=== PATIENT | female | born 2000 | race Caucasian/White ===

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

== ENCOUNTER 2019-02-26 07:58 | Emergency (ER) | payer OTHER ==
[~2019-02-26] VITALS: Ht 157.5 cm; Wt 56.2 kg
[2019-02-26] MEDS ORDERED: TUSSI PRES-B L480 ML PO (09:11)
[2019-02-26] MEDS ORDERED: ZITHROMAX500 MG PO (09:11)
== END 2019-02-26 09:21 | disposition home or self-care (01) ==
LOC: ER 07:58
DX: J31.2 Chronic pharyngitis (principal)

== ENCOUNTER 2019-04-06 14:10 | Emergency (ER) | payer OTHER ==
[~2019-04-06] VITALS: Ht 157.5 cm; Wt 56.7 kg
[~2019-04-06 14:10] MED LIST changes: +TUSSI PRES-B L480 ML PO; +ZITHROMAX500 MG PO
[2019-04-06] MEDS ORDERED: SPRINTEC 28 DA1 EACH PO (14:40)
== END 2019-04-06 15:56 | disposition home or self-care (01) ==
LOC: ER 14:10
DX: N39.0 Urinary tract infection, site not specified (principal)

== ENCOUNTER 2019-05-03 08:17 | Emergency (ER) | payer OTHER ==
[~2019-05-03] VITALS: Ht 157.5 cm; Wt 56.7 kg
[~2019-05-03 08:17] MED LIST changes: +SPRINTEC 28 DA1 EACH PO
[2019-05-03] MEDS ORDERED: TUSSI PRES-B L480 ML PO (11:13)
[2019-05-03] MEDS ORDERED: ZITHROMAX500 MG PO (11:13)
== END 2019-05-03 11:24 | disposition home or self-care (01) ==
LOC: ER 08:17
DX: B34.9 Viral infection, unspecified (principal)

== ENCOUNTER 2019-10-13 13:48 | Emergency (ER) | payer OTHER ==
[~2019-10-13] VITALS: Ht 157.5 cm; Wt 56.7 kg
== END 2019-10-13 18:42 | disposition home or self-care (01) ==
LOC: ER 13:48
DX: N39.0 Urinary tract infection, site not specified (principal); R10.31 Right lower quadrant pain

== ENCOUNTER 2019-10-21 14:07 | Outpatient (CLI) | payer OTHER | END 2019-10-21 14:20 | disposition home or self-care (01) | LOC: SONOGRAMA 14:07 | PROVIDERS: ATTEND Obstetrics & Gynecology | DX: N63.10 Unspecified lump in the right breast, unspecified quadrant (principal); N63.20 Unspecified lump in the left breast, unspecified quadrant; N64.4 Mastodynia ==

== ENCOUNTER 2019-12-30 10:32 | Outpatient (CLI) | payer OTHER | END 2019-12-30 10:58 | disposition home or self-care (01) | LOC: SONOGRAMA 10:32 | PROVIDERS: ATTEND Pathology Anatomic Pathology & Clinical Pathology | DX: N63.10 Unspecified lump in the right breast, unspecified quadrant (principal); N63.20 Unspecified lump in the left breast, unspecified quadrant; N64.4 Mastodynia ==

== ENCOUNTER 2020-02-19 12:14 | Emergency (ER) | payer OTHER ==
[~2020-02-19] VITALS: Ht 157.5 cm; Wt 56.7 kg
== END 2020-02-19 15:31 | disposition home or self-care (01) ==
LOC: EMR PED 12:14 → ER 12:17 → EMR PED 12:17
DX: B86 Scabies (principal)

== ENCOUNTER 2021-12-17 13:57 | Outpatient (CLI) | payer OTHER | END 2021-12-17 14:06 | disposition home or self-care (01) | LOC: SONOGRAMA 13:57 | PROVIDERS: ATTEND Obstetrics & Gynecology | DX: N63.0 Unspecified lump in unspecified breast (principal); N64.4 Mastodynia ==

== ENCOUNTER 2022-01-18 11:59 | Emergency (ER) | payer OTHER ==
[~2022-01-18] VITALS: Ht 157.5 cm; Wt 49.9 kg
== END 2022-01-18 18:29 | disposition home or self-care (01) ==
LOC: ER 11:59
DX: J06.9 Acute upper respiratory infection, unspecified (principal); Z20.822 Contact with and (suspected) exposure to COVID-19

== ENCOUNTER 2022-11-27 15:33 | Emergency (ER) | payer OTHER ==
[~2022-11-27] VITALS: Ht 157.5 cm; Wt 52.2 kg
[2022-11-27] MEDS ORDERED: DITROPAN XL5 MG (16:29)
== END 2022-11-27 19:39 | disposition home or self-care (01) ==
LOC: ER 15:33
DX: N39.0 Urinary tract infection, site not specified (principal); R30.0 Dysuria

== ENCOUNTER 2022-12-13 13:07 | Emergency (ER) | payer OTHER ==
[~2022-12-13] VITALS: Ht 157.5 cm; Wt 49.9 kg
[~2022-12-13 13:07] MED LIST changes: +DITROPAN XL5 MG
== END 2022-12-13 19:56 | disposition home or self-care (01) ==
LOC: ER 13:07
PROVIDERS: General Practice
DX: M62.830 Muscle spasm of back (principal); R10.9 Unspecified abdominal pain

== ENCOUNTER 2023-04-12 19:32 | Emergency (ER) | payer OTHER ==
[~2023-04-12] VITALS: Ht 154.9 cm; Wt 45.4 kg
[2023-04-12 20:51] LABS: HEMOGLOBIN 14.6 g/dL (12.0-15.00); MEAN CELL VOLUME 84.7 fL (80.00-100.00); MEAN CORPUSCULAR HEMOGLOBIN 28.8 pg (27.00-32.0); PLATELET COUNT 215 K/uL (150-450); RED BLOOD COUNT 5.08 M/uL (4.00-6.00); RED CELL DISTRIBUTION WIDTH 13.9 % (11.5-14.5)
[2023-04-12] MEDS ORDERED: OSEL75CA PO (21:32)
== END 2023-04-12 21:39 | disposition home or self-care (01) ==
LOC: ER 19:32
PROVIDERS: General Practice
DX: J10.1 Influenza due to other identified influenza virus with other respiratory manifestations (principal); Z87.09 Personal history of other diseases of the respiratory system; Z20.822 Contact with and (suspected) exposure to COVID-19